=== PATIENT | female | born 1980 | race Caucasian/White ===

== ENCOUNTER 2018-08-10 16:55 | Emergency (ER) | payer OTHER ==
[~2018-08-10] VITALS: Ht 160 cm; Wt 90.7 kg
[2018-08-10 18:07] LABS: BASOPHILS % 0.1 % (0.0-1.0); EOSINOPHILS # (AUTO) 0.1 (0.0-0.4); EOSINOPHILS % 0.9 % (0.0-6.0); HEMATOCRIT 43.6 % (34.2-44.1); HEMOGLOBIN 15.1 g/dL (12.0-16.0); LYMPHOCYTES # (AUTO) 1.1 (1.0-3.2); LYMPHOCYTES % 16.1 % (18.0-39.1); MEAN CORPUSCULAR HEMOGLOBIN 32.1 pg (28-32); MEAN CORPUSCULAR HGB CONC 34.6 g/dL (31-35); MEAN CORPUSCULAR VOLUME 92.6 fL (81-99); MONOCYTES # (AUTO) 0.4 (0.2-0.8); MONOCYTES % 6.2 % (4.4-11.3); NEUTROPHILS # (AUTO) 5.3 (2.1-6.9); NEUTROPHILS % 76.1 % (38.7-80.0); PLATELET COUNT 202 x10e3/uL (140-360); RED BLOOD COUNT 4.71 x10e6/uL (3.6-5.1); RED CELL DISTRIBUTION WIDTH 11.5 % (11.7-14.4)
[2018-08-10 18:28] LABS: BLOOD UREA NITROGEN 7 mg/dL (7-26); BUN/CREATININE RATIO 8 (6-25); CALCIUM 9.3 mg/dL (8.4-10.2); CARBON DIOXIDE 23 mmol/L (22-29); CHLORIDE 102 mmol/L (98-107); CREATINE KINASE 86 IU/L (29-168); CREATININE, SERUM 0.83 mg/dL (0.57-1.11); EST GLOMERULAR FILTRATION RATE > 60 ML/MIN (60-); GLUCOSE 108 mg/dL (74-118); SODIUM 137 mmol/L (136-145)
[2018-08-10] MEDS ORDERED: CLARINEX-D 121 EACH PO (18:45)
--- OUTSIDE RECORDS SUMMARY | 2018-08-11 14:24 | XMS REPORT | Clinical Summary ---
Author Author [facility] Organization [facility] Address Unknown Phone Unavailable Care Team Providers Care Electrician Office Name Role Phone Dana Guo MD PCP Allergies Active Allergy Reactions Severity Noted Date Comments Iodine Swelling High 01/21/2017 No topical iodine Shellfish Derived Swelling High 02/18/2017 Sulfa (Sulfonamide 02/12/2017 Dad, grandmother, and Antibiotics) brother are all allergic to it. So patient prefers not to take it. Current Medications Prescription Sig. Disp. Refills Start End Date Status Date clonAZEPAM (KlonoPIN) 0.5 TAKE ONE-HALF TO ONE (1/2 2 11/28/19 Active MG tablet TO 1) TABLET(S) BY MOUTH 17 AT BEDTIME NEEDED. sertraline (ZOLOFT) 50 MG TAKE ONE (1) TABLET(S) BY 0 12/07/19 Active tablet MOUTH DAILY. 17 loratadine-pseudoepHEDrin Take 1 tablet by mouth Active e (CLARITIN-D 24-hour) daily. 10-240 mg per 24 hr tablet levocetirizine (XYZAL) 5 01/31/20 Active MG tablet 17 Active Problems Not on file Family History Medical History Relation Name Comments Hearing loss Father Hearing loss Mother Relation Name Status Comments Father Mother Social History Tobacco Use Types Packs/Day Years Used Date Former Smoker Quit: 2011 Alcohol Use Drinks/Week oz/Week Comments Yes socially Sex Assigned at Date Recorded Not on file Last Filed Vital Signs Not on file Plan of Treatment Health Maintenance Due Date Last Done Comments CERVICAL CANCER SCREENING 2003 INFLUENZA VACCINE 05/27/2018 Results Not on fileafter 08/09/2017 Insurance Payer Benefit Subscriber ID Type Phone Address Plan / Group AETNA AETNA PPO xxxxxxxxxx PPO OPEN CHOICE AETNA AETNA xxxxxxxxxx HMO HMO,POS,EP O, [facility]
--- OUTSIDE RECORDS SUMMARY | 2018-08-11 14:24 | XMS REPORT | Summary of Care ---
Author Author Sanjuana Jo M.A. Organization Unknown Address [facility] Phone Unavailable Care Team Providers Care Delivery Department Supervisor Name Role Phone Sanjuana Jo M.A. Unavailable Unavailable CLAU RICE M.D. Unavailable Unavailable KRYSTAL SAWYER CO, CLAU S Unavailable Unavailable Unavailable Unavailable Functional Status Name Dates Details Functional status health issues are not documented Status: Name Dates Details Cognitive status health issues are not documented Status: Problems Name Dates Details Tachycardia (785.0, R00.0) Status: Active Irritable bowel syndrome with diarrhea (564.1, K58.0) Status: Active H/O motion sickness (V13.89, Z87.898) Status: Active Major depressive disorder, recurrent, moderate (296.32, F33.1) Status: Active Generalized anxiety disorder (300.02, F41.1) Status: Active Cough (786.2, R05) Status: Active Seasonal allergic rhinitis due to pollen (477.0, J30.1) Status: Active Medications Name Dates Details Sertraline HCl - 100 MG Oral Tablet TAKE 1 TABLET DAILY. Quantity: 90 CLAU RICE M.D. * Start : 28-Aug-2017 Active ClonazePAM 0.5 MG Oral Tablet TAKE 1 TABLET AT BEDTIME NEEDED. * Quantity: 30 Refills: 2 CLAU RICE M.D. * Start : 12-Mar-2016 Active Levocetirizine Dihydrochloride 5 MG Oral Tablet TAKE 1 TABLET DAILY PRN * Refills: 0 Active Egtsnmfht-Ekxhzfcb-UF 30-2-10 MG/5ML Oral Syrup TAKE 5 ML EVERY 4 TO 6 HOURS NEEDED. * Quantity: 118 Refills: 0 CLAU RICE M.D. * Start : 14-Oct-2017 Active Allergies and Adverse Reactions Name Dates Details Sulfa Drugs (Allergy) Status: Active Past Medical History Name Dates Details History of 1 Status: Resolved History of Right acute serous otitis media, recurrence not specified (381.01, H65.01) Status: Resolved Procedures Procedure Dates Details History of Section Completed Immunization Name Dates Details Immunizations not documented Family History Name Dates Details Family history of essential hypertension (V17.49, Z82.49) Status: Active Social History Name Dates Details - Status: Name Dates Details Former smoker Vital Signs Date Test Result Details No Known Vitals to report Results Date Description Value Details Results not documented Plan of Care Name Dates Details Planned Observations Planned Goals not documented Interventions Provided Medication Changes* ClonazePAM 0.5 MG Oral Tablet - Renew Instructions Name Dates Details Instructions not documented Encounters Appointment; CLAU RICE M.D. Encounter Diagnosis: Problem not documented On: 12-Mar-2016 13:30 Appointment; CLAU RICE M.D. Encounter Diagnosis: Problem not documented On: 16-Apr-2016 14:15 Appointment; BAUTISTA DECKER NP Encounter Diagnosis: Problem not documented On: 05-Jul-2016 16:00 Appointment; CLAU RICE M.D. Encounter Diagnosis: Problem not documented On: 30-Jan-2017 15:15 Appointment; CLAU RICE M.D. Encounter Diagnosis: Problem not documented On: 24-Feb-2017 16:00 Appointment; CLAU RICE M.D. Encounter Diagnosis: Problem not documented On: 10-Jun-2017 15:15 Appointment; CLAU RICE M.D. Encounter Diagnosis: Problem not documented On: 27-Aug-2017 12:00 Appointment; CLAU RICE M.D. Encounter Diagnosis: Problem not documented On: 14-Oct-2017 16:00
== END 2018-08-10 19:09 | disposition home or self-care (01) ==
LOC: ER 16:55
DX: R00.2 Palpitations (principal)
CPT/HCPCS: 36415; 80048; 82550; 82553; 84443; 84484; 85025; 85379; 93005; 99283